=== PATIENT | female | born 1960 | race Caucasian/White ===

== ENCOUNTER 2020-04-24 07:50 | Outpatient (REF) | payer OTHER, SELFPAY ==
--- NOTE | 2020-04-24 07:55 | MM_ITS ---
EXAMINATION: MM SCREENING DIGITAL BREAST TOMOSYNTHESIS, BILATERAL CLINICAL INFORMATION: Screening. Asymptomatic. The lifetime risk of breast cancer based on the Tyrer-Cuzick Model is 12.2%. COMPARISON: Mammography: December 18, 2018 and studies dating back to June 02, 2011 TECHNIQUE: Digital breast tomosynthesis is performed in both the craniocaudal and mediolateral oblique views along with computer-aided detection (CAD). Synthesized 2D images are generated from the tomosynthesis. FINDINGS: The breasts are almost entirely fatty (ACR BI-RADS breast composition Category a). There are no significant masses, abnormal calcifications, or other abnormalities. MM/MM tomosynthesis screening BI IMPRESSION: There are no significant changes from prior study. ASSESSMENT: BI-RADS 1: Negative RECOMMENDATION: Routine annual mammography screening. This patient's information was entered into a reminder system with a target due date for their next mammogram.
== END 2020-04-24 07:51 | disposition home or self-care (01) ==
LOC: HO.MAMMO 07:50
PROVIDERS: PCP Internal Medicine; Visit Provider Obstetrics & Gynecology
DX: Z12.31 Encounter for screening mammogram for malignant neoplasm of breast (principal)
CPT/HCPCS: 77063; 77067

== ENCOUNTER 2020-11-12 12:47 | Outpatient (REF) | payer OTHER, SELFPAY ==
[2020-11-14 20:22] LABS: HPV mRNA E6/E7 rflx Not Detected (Not Detected)
== END 2020-11-12 12:48 | disposition home or self-care (01) ==
LOC: HO.LAB 12:47
PROVIDERS: PCP Internal Medicine; Referring Provider Internal Medicine; Visit Provider Obstetrics & Gynecology
DX: Z01.419 Encounter for gynecological examination (general) (routine) without abnormal findings (principal); Z11.51 Encounter for screening for human papillomavirus (HPV)
CPT/HCPCS: 87624; 88142

== ENCOUNTER 2021-05-12 07:14 | Outpatient (REF) | payer OTHER, SELFPAY ==
--- NOTE | ~2021-05-12 | MM_ITS ---
EXAMINATION: MM SCREENING DIGITAL BREAST TOMOSYNTHESIS, BILATERAL CLINICAL INFORMATION: Screening. Asymptomatic. The lifetime risk of breast cancer based on the Tyrer-Cuzick Model is 11%. COMPARISON: Mammography: 04/24/2020, 12/18/2018, 11/04/2017 TECHNIQUE: Digital breast tomosynthesis is performed in both the craniocaudal and mediolateral oblique views along with computer-aided detection (CAD). Synthesized 2D images are generated from the tomosynthesis. FINDINGS: There are scattered areas of fibroglandular density (ACR BI-RADS breast composition Category b). Breast tissue composition borders on predominantly fatty. Background stromal and fibroglandular densities are stable. No developing density or interval mass or architectural abnormality. No abnormal calcifications. The axilla and skin contours are unremarkable. MM/MM tomosynthesis screening BI IMPRESSION: No mammographic evidence of malignancy. ASSESSMENT: BI-RADS 1: Negative RECOMMENDATION: Routine annual mammography screening. This patient's information was entered into a reminder system with a target due date for their next mammogram.
== END 2021-05-12 07:15 | disposition home or self-care (01) ==
LOC: HO.MAMMO 07:14
PROVIDERS: PCP Obstetrics & Gynecology; Visit Provider Internal Medicine
DX: Z12.31 Encounter for screening mammogram for malignant neoplasm of breast (principal)
CPT/HCPCS: 77063; 77067

== ENCOUNTER 2022-05-19 07:26 | Outpatient (REF) | payer OTHER, SELFPAY ==
--- NOTE | ~2022-05-19 | MM_ITS ---
EXAMINATION: MM SCREENING DIGITAL BREAST TOMOSYNTHESIS, BILATERAL CLINICAL INFORMATION: Screening. Asymptomatic. The lifetime risk of breast cancer based on the Tyrer-Cuzick Model is 12.0%. COMPARISON: Mammography: May 12, 2021 and studies dating back to September 12, 2015 TECHNIQUE: Digital breast tomosynthesis is performed in both the craniocaudal and mediolateral oblique views along with computer-aided detection (CAD). Synthesized 2D images are generated from the tomosynthesis. FINDINGS: The breasts are almost entirely fatty (ACR BI-RADS breast composition Category a). There are no significant masses, abnormal calcifications, or other abnormalities. MM/MM tomosynthesis screening BI IMPRESSION: No significant changes ASSESSMENT: BI-RADS 1: Negative RECOMMENDATION: Routine annual mammography screening. This patient's information was entered into a reminder system with a target due date for their next mammogram.
== END 2022-05-19 07:27 | disposition home or self-care (01) ==
LOC: HO.MAMMO 07:26
PROVIDERS: PCP Internal Medicine; Visit Provider Obstetrics & Gynecology
DX: Z12.31 Encounter for screening mammogram for malignant neoplasm of breast (principal)
CPT/HCPCS: 77063; 77067

== ENCOUNTER → 2022-11-18 13:46 | Outpatient (BNVA) | payer OTHER, SELFPAY | PROVIDERS: PCP Internal Medicine; Visit Provider Obstetrics & Gynecology ==

== ENCOUNTER 2022-12-28 12:12 | Outpatient (AMB) | payer OTHER, SELFPAY ==
--- NOTE | 2022-12-28 12:21 | MHC.OFFVIS ---
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 No complaints. Last Pap/HPV was negative in 11/10 Last Mammogram was BI-RADS 1 in 05/13 Last Colonoscopy was in 11/04, the recommendation was to repeat in 5 years [facility] Medical History (Updated 12/28/22 @ 12:27 by Austin Jiménez MD) Hx LEEP (loop electrosurgical excision procedure), cervix, Skin cancer Surgical History History of dental surgery Family History Maternal Grandmother Breast CA Social History Household Members Other:: partner Housing: House Alcohol intake: current Alcohol intake frequency: holidays/special occasions only Patient Tobacco Use Status: Former Tobacco user Years Smoked: 10 Current occupational status: employed 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 [place] Sexual 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/Heterosexual Gender identity: Female Female Reproductive History Menstrual Age of Menarche: 12 Number of Living Children: 0 Date of last pap smear: 11/12/20 Date of Mammogram: 05/19/22 Review of Systems Const All systems reviewed & are unremarkable except as noted in HPI and below Card Reports as per HPI Resp Reports as per HPI GI Reports as per HPI and Reports no additional complaints Reports as per HPI Physical Exam Vital Signs: BMI result Body Mass Index 27.1 Const General: cooperative, healthy appearing and comfortable Chest Chest palpation & inspection: normal inspection of the chest and normal palpation of entire chest wall Breast/axilla inspection: normal inspection of the breasts and normal inspection of the axillae Breast/axilla palpation: normal palpation of the breasts, normal palpation of the axillae and no axillary lymphadenopathy Resp Effort & Inspection: normal respiratory effort Auscultation: clear to auscultation bilaterally Percussion: percussion normal Cardio Palpation: normal PMI Rate: regular rate Rhythm: regular rhythm Heart sounds: no murmurs and no rubs Peripheral pulses: Peripheral pulses 2+ throughout GI Inspection: Yes normal to inspection Palpation (GI): Soft to palpation, nontender, no guarding, not rigid and No hepatosplenomegaly present Percussion: Yes normal to percussion Auscultation: normal bowel sounds Rectal Exam - Female: deferred General: Yes bladder normal to palpation External Female Exam: No lesion Speculum Exam - Vagina: normal appearance of the vagina, normal palpation, normal vaginal discharge and not erythematous Speculum Exam - Cervix: normal appearance of the cervix and normal palpation Bimanual exam- vagina & uterus: normal bimanual exam, normal palpation, uterine size normal, bladder normal to palpation, consistency normal and normal palpation Bimanual Exam- Adnexa, other: normal adnexae, no masses and no tenderness Assessment & Plan Assessment & Plan (1) Well woman exam: Code(s): Z01.419 - Encounter for gynecological examination (general) (routine) without abnormal findings Plan: Co testing not indicated this year. Counseled the patient about the recommended dietary allowance of 1200 mg of Calcium & 600 IU of vitamin D. Instructions given the patient to schedule her next screening Mammogram in 05/14, the patient was referred to GI for screening colonoscopy . The patient was instructed to perform monthly self-breast exams and schedule annual exam in a year; all questions answered and the patient verbalized understanding. Orders: Orders MM screening mammo BI 4 Months Z12.31 - Encounter for screening mammogram for malignant neoplasm of breast Referrals Gastroenterology Referral Z12.11 - Encounter for screening for malignant neoplasm of colon Coding Level of Care Code Est Pt Prev Care 40-64y(48295) Diagnoses Well woman exam Z01.419
[2022-12-28 12:22] VITALS: BP 110/60; BMI 27.1
== END 2022-12-28 12:54 | disposition home or self-care (01) ==
LOC: HO.HWS 12:12
PROVIDERS: PCP Internal Medicine; Visit Provider Obstetrics & Gynecology
DX: Z01.419 Encounter for gynecological examination (general) (routine) without abnormal findings (principal)
CPT/HCPCS: 99396

== ENCOUNTER → 2022-12-28 12:12 | Outpatient (BNVA) | payer OTHER, SELFPAY | PROVIDERS: PCP Internal Medicine; Visit Provider Obstetrics & Gynecology ==

== ENCOUNTER 2023-02-24 06:19 | Outpatient (REF) | payer OTHER, SELFPAY ==
[2023-02-24 06:35] LABS: MANUAL DIFF FLAG NO
[2023-02-24 07:15] LABS: Basophils Percent Auto 0.8 % (0-2); Eosinophils Absolute Auto 0.3 X10*3/uL (0.0-0.4); Hematocrit 40.7 % (37.0-47.0); Hemoglobin 14.2 g/dl (12.0-16.0); Imm Gran Abs Auto 0.01 X10*3/uL (0.00-0.03); Imm Gran Pct Auto 0.2 % (0.0-0.4); Lymphocytes Absolute Auto 1.9 X10*3/uL (1.2-4.9); Lymphocytes Percent Auto 39.9 % (20-40); Mean Corpuscular HGB Conc 34.9 g/dl (31.0-35.0); Mean Corpuscular Hemoglobin 30.8 pg (27.0-33.0); Mean Corpuscular Volume 88.3 fL (80.0-98.0); Mean Platelet Volume 10.5 fL (9.4-12.3); Monocytes Absolute Auto 0.4 X10*3/uL (0.1-1.2); Monocytes Percent Auto 8.7 % (2-11); Neutrophils Absolute Auto 2.2 x10*3/uL (2.0-8.3); Neutrophils Percent Auto 44.4 % (45-73); Platelet Count 200 X10*3/uL (160-400); Red Blood Count 4.61 X10*6/uL (4.20-5.50); Red Cell Distribution Width 12.3 % (11.0-16.0); White Blood Count 4.8 X10*3/uL (4.8-10.8)
[2023-02-24 07:41] LABS: Alanine Aminotransferase 19 U/L (0-31); Albumin Level 4.4 g/dL (3.5-5.0); Alkaline Phosphatase 42 U/L (39-117); Anion Gap 15 (12-20); Aspartate Amino Transferase 23 U/L (5-31); Bilirubin Total 0.5 mg/dL (0.0-1.0); Blood Urea Nitrogen 8 mg/dL (9-16); Calcium 9.4 mg/dL (8.4-10.2); Carbon Dioxide 25 mmol/L (22-29); Chloride 105 mmol/L (96-108); Cholesterol 221 mg/dL (<200); Estimated Glomerular Filt Rate > 60; Glucose Fasting 105 mg/dL (60-99); HDL Cholesterol 78 mg/dL (>40); LDL Cholesterol Calculated 130 mg/dL (<100); Potassium 4.1 mmol/L (3.3-5.1); Sodium 141 mmol/L (135-145); Total Protein 7.1 g/dL (6.5-8.0); Triglycerides 69 mg/dL (<150)
[2023-02-24 07:56] LABS: Vitamin D 25-OH Total 32.5 ng/mL (>30)
== END 2023-02-24 06:20 | disposition home or self-care (01) ==
LOC: HO.LAB 06:19
PROVIDERS: PCP Internal Medicine; Visit Provider Internal Medicine
DX: Z01.818 Encounter for other preprocedural examination (principal); K21.9 Gastro-esophageal reflux disease without esophagitis; K80.20 Calculus of gallbladder without cholecystitis without obstruction; M25.551 Pain in right hip; Z79.899 Other long term (current) drug therapy
CPT/HCPCS: 36415; 80053; 80061; 82306; 85025

== ENCOUNTER 2023-02-24 07:10 | Outpatient (AMB) | payer OTHER, SELFPAY ==
--- NOTE | 2023-02-24 07:34 | MHC.OFFVIS ---
Intake Vital Signs 02/24/23 07:38 Height 5 ft 5 in Weight 160 lb BMI 26.6 BP 131/70 Blood Pressure Location Lt brachial Position Sitting Pulse 61 Intake Visit Reasons: Screening Colonoscopy Intake Note: Patient new consult for 2nd pre colonoscopy screening. Patient denies any GI issues. Hand Zipper Trimmer Required: No Accompanied by: Self / Same As Patient Allergies bee pollen [BEE STINGS] Allergy (Severe, Verified 02/24/23 07:33) ANAPHYLAXIS ENVIROMENTAL Allergy (Intermediate, Uncoded 12/28/22 12:23) HAYFEVER Medication List - Last Reconciled 02/24/23 by Jacki Whipple PA-C cetirizine (Zyrtec) 10 mg PO DAILY PRN omeprazole 20 mg PO DAILY trazodone 50 mg PO QPM HPI HPI Comments History of Present Illness Details A 62 y/o female with persistent acid reflux- due for screening colonoscopy ppi for about 8 years- dietary modifications- nothing specific- ID Normal Bowels No fam hx GI cancers No respiratory or cardiac issues No N/V/ D/ abdominal pain. 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 [place] Sexual 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/Heterosexual Gender identity: Female Female Reproductive History Menstrual Age of Menarche: 12 Review of Systems Const All systems reviewed & are unremarkable except as noted in HPI and below Card Reports chest pain and Denies dyspnea Resp Denies dyspnea GI Denies abdominal pain, Denies hematochezia, Reports heartburn, Denies nausea and Denies vomiting Physical Exam Vital Signs: Last Vital Signs Pulse 61 02/24/23 07:38 BP 131/70 02/24/23 07:38 BMI result Body Mass Index 26.6 Const General: cooperative, healthy appearing, comfortable and no acute distress Orientation/consciousness: patient oriented x3 Limitations: no limitations Eyes Conjunctivae: conjunctivae normal Resp Effort & Inspection: normal respiratory effort and able to speak in complete sentences Auscultation: clear to auscultation bilaterally, no rales, no rhonchi and no wheezes Cardio Rate: regular rate Rhythm: regular rhythm Heart sounds: S1 normal heart sound present and S2 normal heart sound present Skin General skin exam: no rashes or lesions noted Neuro General: patient oriented x3 Extrem General: Yes full ROM Psych Appearance: grossly normal and well kempt Mental Status: mental status grossly normal Speech and movement: Normal speech and movement present and Clear speech present Affect: normal affect Attitude: cooperative Thought process: Normal thought process present Thought content: Normal thought content present Insight: Good insight present (Psych) Judgement: Good judgement present (Psych) Assessment & Plan Assessment & Plan (1) Acid reflux: Code(s): K21.9 - Gastro-esophageal reflux disease without esophagitis Plan: EGD- Barretts surveillance- r/o PUD, non ulcer dyspepsia- esophagitis - other endoscopic findings (2) Encounter for screening colonoscopy: Code(s): Z12.11 - Encounter for screening for malignant neoplasm of colon Plan: screening colonoscopy MG split Plan EGD/ colonoscopy=MG split prep Orders: Orders EGD/[place] Combo - GI Use Only Today K21.9 - Gastro-esophageal reflux disease without esophagitis, Z12.11 - Encounter for screening for malignant neoplasm of colon Medications: New polyethylene glycol 3350 (Miralax) Take as directed by mouth the day before your procedure. 238 grams PO ONCE 1 day PRN 238 grams 0RF laxative effect bisacodyl (Dulcolax (bisacodyl)) Day before procedure, prep day Take 4 tablets by mouth upon awakening followed by large glass of water 20 mg (4 x 5 mg) PO ONCE 1 day 4 tabs 0RF colonoscopy prep Z12.11 - Encounter for screening for malignant neoplasm of colon Patient Instructions: EGD/ colonoscopy=MG split prep literature given Reflux precautions avoid culprits continue ppi call with concerns Coding Level of Care Code New Pt Level 3 (25401) Diagnoses Acid reflux K21.9 Encounter for screening colonoscopy Z12.11 Time Spent (min) 30
[2023-02-24 07:38] VITALS: BP 131/70; PULSE 61; BMI 26.6
== END 2023-02-24 08:38 | disposition home or self-care (01) ==
PROVIDERS: PCP Internal Medicine; Visit Provider Physician Assistant
DX: K21.9 Gastro-esophageal reflux disease without esophagitis (principal); Z12.11 Encounter for screening for malignant neoplasm of colon
CPT/HCPCS: 99203

== ENCOUNTER 2023-05-27 07:11 | Outpatient (REF) | payer OTHER, SELFPAY | END 2023-05-27 07:12 | disposition home or self-care (01) | LOC: HO.MAMMO 07:11 | PROVIDERS: PCP Internal Medicine; Visit Provider Internal Medicine | DX: Z12.31 Encounter for screening mammogram for malignant neoplasm of breast (principal) | CPT/HCPCS: 77063; 77067 ==

== ENCOUNTER → 2023-05-27 07:30 | Outpatient (BNV) | payer OTHER, SELFPAY | PROVIDERS: PCP Internal Medicine; Visit Provider Radiology Diagnostic Radiology | DX: Z12.31 Encounter for screening mammogram for malignant neoplasm of breast (principal) | CPT/HCPCS: 77063; 77067 ==

== ENCOUNTER 2023-08-02 07:51 | Day surgery (SDC) | payer OTHER, SELFPAY ==
--- NOTE | 2023-07-29 12:16 | P.CONAN_ITS ---
Documented by User: Lacie Crisostomo NP 07/29/23 12:17 HPI - Anesthesia Eval Consult details Narrative: 62yo F for Upper Endoscopy and Colonoscopy PMFSH Active Problems Active Problems: All Active Problems (Updated 02/24/23 @ 07:58 by Jacki Whipple PA-C) Encounter for screening colonoscopy (Acute) Acid reflux (Acute) Well woman exam (Acute) Past Medical History Medical History Hx LEEP (loop electrosurgical excision procedure), cervix, Skin cancer Family History Family History Maternal Grandmother Breast CA Surgical History Surgical History Hx of colonoscopy History of dental surgery Social History Social History Household Members Other:: partner Housing: House Alcohol intake: current Alcohol intake frequency: holidays/special occasions only Patient Tobacco Use Status: Former Tobacco user Years Smoked: 10 Use of substances other than those prescribed or required for medical reasons: Yes Are you DNR?: No Advance Directives: No Advance Directives Information Provided: Yes Current occupational status: employed 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[place] Sexual 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/Heterosexual Gender identity: Female Meds Allergies Allergy/AdvReac Type Severity Reaction Status Date / Time bee pollen [BEE STINGS] Allergy Severe ANAPHYLAXIS Verified 02/24/23 07:33 ENVIROMENTAL Allergy Intermediate HAYFEVER Uncoded 12/28/22 12:23 Home Medications Medication Instructions Recorded Confirmed Last Taken Type cetirizine 10 mg tablet (Zyrtec) 10 mg PO DAILY PRN Seasonal 11/12/20 08/02/23 Unknown History allergies omeprazole 20 mg capsule,delayed 20 mg PO DAILY 11/16/21 08/02/23 Unknown History release trazodone 50 mg tablet 50 mg PO QPM 11/16/21 08/02/23 Unknown History Exam Pertinent Lab Results Pertinent Lab Results: Laboratory Tests 02/24/23 06:33 WBC 4.8 Hgb 14.2 Hct 40.7 Plt Count 200 Sodium 141 Potassium 4.1 Chloride 105 Carbon Dioxide 25 BUN 8 L Creatinine 0.74 Assessment and Plan Assessment Anesthesia Assessment: Chart Reviewed Documented by User: Lakeisha Huang MD 08/02/23 08:39 PMFSH Past Medical History Medical History Hx LEEP (loop electrosurgical excision procedure), cervix, Skin cancer Family History Family History Maternal Grandmother Breast CA Family history of problems with anesthesia: No Surgical History Surgical History Hx of colonoscopy History of dental surgery History of Problems with Anesthesia: No Social History Social History Household Members Other:: partner Housing: House Alcohol intake: current Alcohol intake frequency: holidays/special occasions only Patient Tobacco Use Status: Former Tobacco user Years Smoked: 10 Use of substances other than those prescribed or required for medical reasons: Yes Are you DNR?: No Advance Directives: No Advance Directives Information Provided: Yes Current occupational status: employed 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[place] Sexual 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/Heterosexual Gender identity: Female Meds Allergies Allergy/AdvReac Type Severity Reaction Status Date / Time bee pollen [BEE STINGS] Allergy Severe ANAPHYLAXIS Verified 02/24/23 07:33 ENVIROMENTAL Allergy Intermediate HAYFEVER Uncoded 12/28/22 12:23 Home Medications Medication Instructions Recorded Confirmed Last Taken Type cetirizine 10 mg tablet (Zyrtec) 10 mg PO DAILY PRN Seasonal 11/12/20 08/02/23 Unknown History allergies omeprazole 20 mg capsule,delayed 20 mg PO DAILY 11/16/21 08/02/23 Unknown History release trazodone 50 mg tablet 50 mg PO QPM 11/16/21 08/02/23 Unknown History Exam Airway Mallampati Class: II TM Dist: >3cm Neck ROM: Full Heart: rrr Lungs: cta Assessment and Plan Assessment Anesthesia Assessment: Anesthesia Plan Discussed Final Anesthetic Review Family History of Problems with Anesthesia: No History of Problems with Anesthesia: No NPO: Yes ASA Class: II Final Preanesthetic Review: No Changes in Pt Med Stat, Meds/Allgs Chart Reviewed, Consent Obtained/Reviewed and Anes Risks/Benef Reviewed Patient Risk: Low Procedure Risk: Low Anesthetic Plan Anesthetic Plan: MAC: Disposition: Standard PACU
[2023-08-02 08:18] VITALS: BMI 27.5
[2023-08-02 08:38] VITALS: BP 142/83; PULSE 68; RESP 16; TEMP 36.5; O2SAT 99
--- NOTE | 2023-08-02 09:17 | MHC.SHP ---
Pre-Procedural Eval Section A - 24 Hr Update-Section A only Date of Service: 08/02/23 Section B - Complete if H&P > 30 days Chief Complaint: Gastro-esophageal reflux disease without esophagit Details of Present Illness: colo screening Relevant Family History (Specify if Yes): No Relevant Social History: None Present Medications: see Short Stay Collaborative assessment Medical History: Significant History ( Hx LEEP (loop electrosurgical excision procedure), cervix, Skin cancer) History of Previous Operations: Relevant previous surgery/procedure and date(s) (History of dental surgery) Allergies: Allergies Allergy/AdvReac Type Severity Reaction Status Date / Time bee pollen [BEE STINGS] Allergy Severe ANAPHYLAXIS Verified 02/24/23 07:33 ENVIROMENTAL Allergy Intermediate HAYFEVER Uncoded 12/28/22 12:23 Review of Systems Sugical H&P ROS: Negative: Constitution, Cardiovascular, Respiratory, Neurological, Psychiatric, Hem-Onc, Allergic/Immunologic, Gastrointestinal, Genitourinary, Musculoskeletal, Integumentary, Endocrine and Eyes/Ears/Nose/Throat Exam Surgical H&P Exam: Normal: HEENT, Normal: Heart, Normal: Lungs, Normal: Extremities, Normal: Abdomen, Normal: Skin and Normal: Neurological Plan Diagnosis/Plan: Unchanged I have reviewed the history and physical and performed a pertinent physical examination on my patient. No changes have occurred unless specified. Time Spent With Patient Time: Total time managing care of this patient today ____ minutes.
--- NOTE | 2023-08-02 09:20 | P.OP_ITS ---
Operative Note Operative Note Date of Service: 08/02/23 Narrative: Operative Information Procedure Description: EGD, Colonoscopy Indication: GERD, colo screening Anesthesia: MAC FLEXIBLE TRANSORAL UPPER GASTROINTESTINAL ENDOSCOPY AND COLONOSCOPY PROCEDURE NOTE UPPER ENDOSCOPY Consent: Indications for the procedure and potential complications of bleeding, perforation, reaction to medications and missed diagnosis were discussed with the patient and informed consent was obtained. Instrument: Olympus GIF H 190 J mid size upper endoscope Monitoring: Vital signs and clinical assessment, continuous EKG monitoring, Pulse oximetry, Carbon Dioxide monitoring and blood pressure monitoring were done throughout the procedure. Procedure: The patient was placed in the left lateral decubitis position and pre-procedure medications were administered and a bite block was placed. The endoscope was inserted into the mouth and advanced under direct vision to the third part of duodenum. A careful inspection was made as the upper endoscope was withdrawn including a retroflexed examination of the proximal stomach; Findings and interventions are described below. Findings: Larynx:normal Esophagus: GE junction at 36 cm, diaphragm hiatus at 36 cm, mild esophagitis at GEJ, bx taken from here and from distal, proximal esophagus Stomach: Granular mucosa with erythema. Biopsies were obtained. Grade 2 flap valve on retroflexed examination of the cardia. Duodenum: Normal bulb and descending duodenum, Intervention: Biopsies as noted above, COLONOSCOPY Instrument: Olympus variable stiffness pediatric scope 190L Colonoscopy Monitoring: Vital signs and clinical assessment, continuous EKG monitoring, Pulse oximetry, Carbon Dioxide monitoring and blood pressure monitoring were done throughout the procedure. Colon withdrawal time was 13 minutes. Procedure: The patient was placed in the left lateral decubitis position and pre-procedure medications were administered. After a digital rectal examination of the ano-rectum, the video colonoscope was inserted into the rectum and advanced through the colon to the cecum/TI. The colonoscope was slowly withdrawn in a retrograde panoramic fashion and the colon mucosa was carefully examined including a retroflexed view of the rectum. Findings and interventions are described below. Procedure Difficulty:moderate Findings: Terminal Ileum-not intubated due to looping Cecum:normal Ascending Colon: normal Transverse Colon -normal Descending Colon:normal Sigmoid Colon: normal Rectum: Retroflexion with small internal hemorrhoids, grade I, one sessile polyp 7-8 mm removed with cold forceps Anorectum - normal Colon preparation: [place] Bowel Preparation Scale Right colon; 2 Transverse colon: 2 Left colon; 2 (0 = Unprepared colon segment with mucosa not seen due to solid stool that cannot be cleared. 1 = Portion of mucosa of the colon segment seen, but other areas of the colon segment not well seen due to staining, residual stool and/or opaque liquid. 2 = Minor amount of residual staining, small fragments of stool and/or opaque liquid, but mucosa of colon segment seen well. 3 = Entire mucosa of colon segment seen well with no residual staining, small fragments of stool or opaque liquid) Impression and Post Procedure Diagnosis: Endoscopy Findings: gastritis mild esophagitis Colonoscopy Findings: rectal polyp Plan: Await Pathology results Repeat Colonoscopy in 5-7 years if adenoma, 10 yrs if hyperplastic or earlier if clinically indicated High fiber diet leaflet avoid straining at stool, epsom salts and sitz bath, anusol supps or cream discussed timing of PPI, was taking incorrectly, reviewed taking in morning on empty stomach then eating after 15 mins Above findings were reviewed with the patient and relevant handouts were provided if indicated.
[2023-08-02 10:09] VITALS: BP 115/80; PULSE 82; RESP 18; TEMP 36.1; O2SAT 96
[2023-08-02 10:24] VITALS: BP 126/78; PULSE 78; RESP 20; TEMP 36.6; O2SAT 96
== END 2023-08-02 10:42 | disposition home or self-care (01) ==
PROVIDERS: PCP Internal Medicine; Visit Provider Internal Medicine Gastroenterology
PROC: (CPT 43239; principal; 2023-08-02 09:20)
DX: K29.70 Gastritis, unspecified, without bleeding (principal); K20.80 Other esophagitis without bleeding; K21.9 Gastro-esophageal reflux disease without esophagitis; Z12.11 Encounter for screening for malignant neoplasm of colon; K62.1 Rectal polyp; K64.0 First degree hemorrhoids; Z79.899 Other long term (current) drug therapy; Z87.891 Personal history of nicotine dependence
CPT/HCPCS: 43239; 45380; 88305; 88313; 88342; J1100; J1596; J2704

== ENCOUNTER → 2023-08-02 07:51 | Outpatient (BNV) | payer OTHER, SELFPAY | PROVIDERS: PCP Internal Medicine; Visit Provider Internal Medicine Gastroenterology | DX: Z12.11 Encounter for screening for malignant neoplasm of colon (principal); K62.1 Rectal polyp; K64.0 First degree hemorrhoids; K21.00 Gastro-esophageal reflux disease with esophagitis, without bleeding; K29.70 Gastritis, unspecified, without bleeding | CPT/HCPCS: 43239; 45380 ==

== ENCOUNTER 2023-08-16 07:23 | Outpatient (AMB) | payer OTHER, SELFPAY ==
--- NOTE | 2023-08-16 07:26 | MHC.OFFVIS ---
Intake Vital Signs 08/16/23 07:27 Height 5 ft 5 in Weight 167 lb 8.821 oz BMI 27.9 BP 123/72 Blood Pressure Location Lt brachial Position Sitting Pulse 68 Intake Visit Reasons: s/p egd/colon Intake Note: Selena presents in the office as a follow up EGD and COLO. CC: She states that she has not had a BM since her procedures. Her stomach has been upset. Managed Care Nurse Required: No Allergies bee pollen [BEE STINGS] Allergy (Severe, Verified 08/16/23 07:27) ANAPHYLAXIS ENVIROMENTAL Allergy (Intermediate, Uncoded 08/16/23 07:27) HAYFEVER HPI HPI Comments History of Present Illness Details A 62 y/o female f/u 2 weeks after EGD/ colonoscopy- she has not had a solid BM- stool been runny- epigastric pain and bloating-not sure if she is constipated Appetite is good- She says sx could be stress her has a neobladder after bladder cancer- now has undergo chemo for cancer- colon cancer -is not as well as she had expected. This has caused her a lot of stress certainly understandable She is very tearful-worried No rectal bleeding, nausea, vomiting, fever or chills PFSH Medical History (Updated 08/16/23 @ 11:25 by Jacki Whipple PA-C) Hx LEEP (loop electrosurgical excision procedure), cervix, Skin cancer Surgical History History of esophagogastroduodenoscopy (EGD) Hx of colonoscopy History of dental surgery Family History Maternal Grandmother Breast CA Social History Household Members Other:: partner Housing: House Alcohol intake: current Alcohol intake frequency: holidays/special occasions only Patient Tobacco Use Status: Former Tobacco user Years Smoked: 10 Current occupational status: employed 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[place] Sexual 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/Heterosexual Gender identity: Female Female Reproductive History Menstrual Age of Menarche: 12 Review of Systems Const All systems reviewed & are unremarkable except as noted in HPI and below Card Denies chest pain and Denies dyspnea Resp Denies dyspnea GI Reports change in bowel habits and Reports heartburn Physical Exam Vital Signs: Last Vital Signs Pulse 68 08/16/23 07:27 BP 123/72 08/16/23 07:27 BMI result Body Mass Index 27.9 Const General: cooperative, healthy appearing, comfortable and anxious Orientation/consciousness: patient oriented x3 Limitations: no limitations Cardio Rate: regular rate Rhythm: regular rhythm Heart sounds: S1 normal heart sound present and S2 normal heart sound present GI Palpation (GI): Soft to palpation and nontender Auscultation: normal bowel sounds Skin General skin exam: no rashes or lesions noted Neuro General: patient oriented x3 Extrem General: Yes full ROM Psych Appearance: grossly normal Mental Status: mental status grossly normal Speech and movement: Clear speech present Affect: Sad affect present Attitude: cooperative Thought process: Normal thought process present Thought content: Normal thought content present Results Reviewed Results Reviewed: Name: Selena Womack Age/Sex: 62/F Attending: Felix Burton MD : 1960 Submitted by: Felix Burton MD Copies to: Luis M Blackwood MD MR #: [id number] Status: [facility] Collected: 08/02/23 Location: [facility] Received: 08/02/23 Diagnosis A. Stomach, biopsy: Antral-type and oxyntic mucosa with mild chronic inactive inflammation; no Helicobacter organisms seen. B. GE junction, biopsy: - Cardiofundic-type mucosa with moderate chronic, focally active, inflammation; no intestinal metaplasia seen. - Squamous mucosa within normal limits. C. Esophagus, distal, biopsy: Squamous epithelium within normal limits; no inflammation seen. D. Esophagus, proximal, biopsy: Active esophagitis (maximum eosinophil count 1 per high powered field). E. Rectum, polypectomy: Hyperplastic mucosal polyp. Clinical History Pre-Op Dx: GERD, colon screening Post-Op Dx: Gastritis Microscopic Description A-E. Microscopic sections examined. No metaplastic changes are seen, supported by AB/PAS stains (A and B); no Helicobacter organisms are seen, supported by H. pylori immunostain (A). Material Received A. Stomach bx's B. GE junction bx's C. Distal esophagus D. Proximal esophagus E. Rectal polyp Gross Description Received in 5 parts. Part A: Received in formalin labeled ?stomach bx's? are 3 pan irregular and rectangular tissue fragments ranging from 0.2-0.7 cm, submitted in toto in a cassette labeled A. Part B: Received in formalin labeled ?GE junction? are 4 pan-pink irregular and rectangular tissue Patient: Selena Womack Age/Sex: 62/F MR#: [id number] Page 1 of 2 mpression and Post Procedure Diagnosis: Endoscopy Findings: gastritis mild esophagitis Colonoscopy Findings: rectal polyp Plan: Await Pathology results Repeat Colonoscopy in 5-7 years if adenoma, 10 yrs if hyperplastic or earlier if clinically indicated High fiber diet leaflet avoid straining at stool, epsom salts and sitz bath, anusol supps or cream discussed timing of PPI, was taking incorrectly, reviewed taking in morning on empty stomach then eating after 15 mins Above findings were reviewed with the patient and relevant handouts were provided if indicated. Assessment & Plan Assessment & Plan (1) Constipation: Code(s): K59.00 - Constipation, unspecified Plan: KUB- HFD (2) Esophagitis: Comment: Omeprazole 20 mg with breakthrough, reviewed EGD, pathology will give trial to pantoprazole 40 mg Code(s): K20.90 - Esophagitis, unspecified without bleeding Plan: pantoprazole 40 mg (3) Stress due to illness of family member: Comment: Very pleasant 62-year-old female - with 2nd cancer diagnoses, -undergoing chemotherapy-has been very difficult to her she has no children Code(s): Z63.79 - Other stressful life events affecting family and household Plan: Emotional support-30 minute discussion regarding illness, stress ETC- Very receptive to support Plan KUB pantoprazole 40 mg- Orders: Orders XR KUB Today K20.90 - Esophagitis, unspecified without bleeding, K59.00 - Constipation, unspecified Medications: New pantoprazole 40 mg PO DAILY 30 days 30 tabs 11RF Patient Instructions: KUB High-fiber diet pantoprazole 40 mg- Reviewed reflux precautions Encouraged her to call with any questions or concerns, if we can be of any assistance in any way Coding Level of Care Code Est Pt Level 4 (54237) Diagnoses Constipation K59.00 Esophagitis K20.90 Stress due to illness of family member Z63.79 Time Spent (min) 45
[2023-08-16 07:27] VITALS: BP 123/72; PULSE 68; BMI 27.9
== END 2023-08-16 09:57 | disposition home or self-care (01) ==
PROVIDERS: PCP Internal Medicine; Visit Provider Physician Assistant
DX: K59.00 Constipation, unspecified (principal); K20.90 Esophagitis, unspecified without bleeding; Z63.79 Other stressful life events affecting family and household
CPT/HCPCS: 99214

== ENCOUNTER 2023-08-16 07:23 | Outpatient (REF) | payer OTHER, SELFPAY ==
--- NOTE | ~2023-08-16 | XR_ITS ---
EXAMINATION: XR ABDOMEN KUB CLINICAL INDICATION: Constipation. COMPARISON: None available. TECHNIQUE: 2 AP views of the abdomen and pelvis are submitted. FINDINGS: The bowel gas pattern is normal with no evidence of ileus or obstruction. There is a mild to moderate stool burden. No free intraperitoneal air is seen. No unusual soft tissue calcifications are noted. No acute osseous abnormality is seen. There are very mild degenerative changes of the hips. XR/XR KUB IMPRESSION: There is mild to moderate stool burden. No obstruction, ileus or free intraperitoneal air is seen.
== END 2023-08-16 07:24 | disposition home or self-care (01) ==
LOC: HO.XRAY 07:23
PROVIDERS: PCP Internal Medicine; Visit Provider Physician Assistant
DX: K59.00 Constipation, unspecified (principal); K20.90 Esophagitis, unspecified without bleeding; Z63.79 Other stressful life events affecting family and household
CPT/HCPCS: 74018; 99212

== ENCOUNTER 2024-03-08 09:04 | Outpatient (AMB) | payer OTHER, SELFPAY ==
[2024-03-08 09:32] VITALS: BP 120/76; BMI 26.8
--- NOTE | 2024-03-08 09:32 | A.OFFVIS_ITS ---
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 No complaints. Last Pap/HPV was negative in 11/10 Last Mammogram was BI-RADS 1 in 06/15 Last Colonoscopy was in 08/13, the recommendation was to repeat in 10 years No previous DEXA scan, the patient gives a history of osteoporosis recently diagnosed with her 2 sisters [facility] Medical History Hx LEEP (loop electrosurgical excision procedure), cervix, Skin cancer Surgical History History of esophagogastroduodenoscopy (EGD) Hx of colonoscopy History of dental surgery Family History Maternal Grandmother Breast CA Social History Household Members Other:: partner Housing: House Alcohol intake: current Alcohol intake frequency: holidays/special occasions only Patient Tobacco Use Status: Former Tobacco user Years Smoked: 10 Current occupational status: employed 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 [employer] Sexual 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/Heterosexual Gender identity: Female Female Reproductive History Menstrual Age of Menarche: 12 Date of last pap smear: 11/13/20 Date of Mammogram: 05/27/23 Review of Systems Const All systems reviewed & are unremarkable except as noted in HPI and below Card Reports as per HPI Resp Reports as per HPI GI Reports as per HPI and Reports no additional complaints Reports as per HPI Physical Exam Vital Signs: Last Vital Signs BP 120/76 03/08/24 09:32 BMI result Body Mass Index 26.8 Const General: cooperative, healthy appearing and comfortable Chest Chest palpation & inspection: normal inspection of the chest and normal palpation of entire chest wall Breast/axilla inspection: normal inspection of the breasts and normal inspection of the axillae Breast/axilla palpation: normal palpation of the breasts, normal palpation of the axillae and no axillary lymphadenopathy Resp Effort & Inspection: normal respiratory effort Auscultation: clear to auscultation bilaterally Percussion: percussion normal Cardio Palpation: normal PMI Rate: regular rate Rhythm: regular rhythm Heart sounds: no murmurs and no rubs Peripheral pulses: Peripheral pulses 2+ throughout GI Inspection: Yes normal to inspection Palpation (GI): Soft to palpation, nontender, no guarding, not rigid and No hepatosplenomegaly present Percussion: Yes normal to percussion Auscultation: normal bowel sounds Rectal Exam - Female: deferred General: Yes bladder normal to palpation External Female Exam: No lesion Speculum Exam - Vagina: normal appearance of the vagina, normal palpation, normal vaginal discharge and not erythematous Speculum Exam - Cervix: normal appearance of the cervix and normal palpation Bimanual exam- vagina & uterus: normal bimanual exam, normal palpation, uterine size normal, bladder normal to palpation, consistency normal and normal palp ation Bimanual Exam- Adnexa, other: normal adnexae, no masses and no tenderness Assessment & Plan Assessment & Plan (1) Well woman exam: Comment: History of ELANA 2 in 0 7 status post LEEP Code(s): Z01.419 - Encounter for gynecological examination (general) (routine) without abnormal findings Category: Medical Plan: Co testing done. Counseled the patient about the recommended dietary allowance of 1200 mg of Calcium & 600 IU of vitamin D. Instructions given the patient to schedule next screening Mammogram in 06/16. DEXA scan ordered, instructions given the patient to schedule DEXA scan and a follow-up appointment within 2 weeks. The patient was instructed to perform monthly self-breast exams and schedule annual exam in a year. All questions answered and the patient verbalized understanding. Orders: Orders XR DEXA axial skeleton Today Z78.0 - Asymptomatic menopausal state Coding Level of Care Code Est Pt Prev Care 40-64y(13799) Diagnoses Well woman exam Z01.419
== END 2024-03-08 09:51 | disposition home or self-care (01) ==
PROVIDERS: PCP Internal Medicine; Visit Provider Obstetrics & Gynecology
DX: Z01.419 Encounter for gynecological examination (general) (routine) without abnormal findings (principal)
CPT/HCPCS: 99396

== ENCOUNTER 2024-04-02 12:01 | Outpatient (REF) | payer OTHER, SELFPAY ==
[2024-04-02 13:07] LABS: MANUAL DIFF FLAG NO
[2024-04-02 13:29] LABS: Basophils Percent Auto 0.6 % (0-2); Eosinophils Absolute Auto 0.2 X10*3/uL (0.0-0.4); Eosinophils Percent Auto 4.2 % (0-4); Hematocrit 39.3 % (37.0-47.0); Hemoglobin 13.7 g/dl (12.0-16.0); Imm Gran Abs Auto 0.01 X10*3/uL (0.00-0.03); Imm Gran Pct Auto 0.2 % (0.0-0.4); Lymphocytes Absolute Auto 1.7 X10*3/uL (1.2-4.9); Lymphocytes Percent Auto 33.8 % (20-40); Mean Corpuscular HGB Conc 34.9 g/dl (31.0-35.0); Mean Corpuscular Hemoglobin 30.4 pg (27.0-33.0); Mean Corpuscular Volume 87.3 fL (80.0-98.0); Monocytes Absolute Auto 0.4 X10*3/uL (0.1-1.2); Monocytes Percent Auto 7.6 % (2-11); Neutrophils Absolute Auto 2.7 x10*3/uL (2.0-8.3); Neutrophils Percent Auto 53.6 % (45-73); Platelet Count 198 X10*3/uL (160-400); Red Cell Distribution Width 12.4 % (11.0-16.0)
[2024-04-02 14:00] LABS: Alanine Aminotransferase 17 U/L (0-31); Albumin Level 4.4 g/dL (3.5-5.0); Alkaline Phosphatase 42 U/L (39-117); Anion Gap 11 (12-20); Aspartate Amino Transferase 21 U/L (5-31); Bilirubin Total 0.4 mg/dL (0.0-1.0); Blood Urea Nitrogen 9 mg/dL (9-16); Calcium 9.1 mg/dL (8.4-10.2); Carbon Dioxide 27 mmol/L (22-29); Chloride 103 mmol/L (96-108); Cholesterol 215 mg/dL (<200); Estimated Glomerular Filt Rate > 60; Glucose Random 101 mg/dL (60-115); Potassium 4.2 mmol/L (3.3-5.1); Sodium 137 mmol/L (135-145); Total Protein 7.2 g/dL (6.5-8.0)
== END 2024-04-02 12:02 | disposition home or self-care (01) ==
LOC: HO.10HDL 12:01
PROVIDERS: Visit Provider Internal Medicine
DX: I10 Essential (primary) hypertension (principal); K21.9 Gastro-esophageal reflux disease without esophagitis; M16.0 Bilateral primary osteoarthritis of hip
CPT/HCPCS: 36415; 80053; 82306; 82465; 85025

== ENCOUNTER 2024-06-01 07:18 | Outpatient (REF) | payer OTHER, SELFPAY ==
--- NOTE | ~2024-06-01 | MM_ITS ---
EXAMINATION: MM SCREENING DIGITAL BREAST TOMOSYNTHESIS, BILATERAL CLINICAL INFORMATION: Screening. Asymptomatic. COMPARISON: Mammography: Comparison is made with available priors TECHNIQUE: Digital breast mammography with tomosynthesis is performed in both the craniocaudal and mediolateral oblique views along with computer-aided detection (CAD). FINDINGS: There are scattered areas of fibroglandular density (ACR BI-RADS breast composition Category b). There are no significant masses, abnormal calcifications, or other abnormalities. MM/MM tomosynthesis screening BI IMPRESSION: No mammographic evidence of malignancy. ASSESSMENT: BI-RADS BI-RADS 1 - Negative RECOMMENDATION: Routine annual mammography screening. 1 year F/U This examination should not preclude the clinical evaluation of a suspicious palpable abnormality. This patient's information was entered into a reminder system with a target due date for their next mammogram. Electronically signed by: Sakina Moore DO 06/08/2024 09:36 AM SARAH
--- NOTE | ~2024-06-01 | MM_ITS ---
EXAMINATION: Dual-Energy X-ray Absorptiometry - Bone Density Study HISTORY: Estrogen deficiency TECHNIQUE: Comr.se Dual energy absorptiometry (DEXA) of the lumbar spine, total left hip, and femoral neck was performed. COMPARISON: There are no prior studies for comparison. FINDINGS: The bone mineral density of the lumbar spine is 1.000 with a T-score of -1.5, and a Z-score of -0.2. The bone mineral density of the left total hip is 0.926 with a T-score of -0.6, and a Z-score of 0.3. The bone mineral density of the left femoral neck is 0.857 with a T-score of -1.3, and a Z-score of 0.0. FRACTURE RISK: The FRAX index suggests a risk of major osteoporotic fracture of 13.9%, and of hip fracture 1.3%. MM/XR DEXA axial skeleton IMPRESSION: Based on bone mineral density, and according to World Health Organization (WHO) criteria, the diagnosis is consistent with osteopenia. All bone density values are in grams per centimeter squared. At this facility, the least significant change in BMD with 95% confidence is 0.022 at the lumbar spine, 0.027 at the hip, and 0.023 at the distal 1/3 radius. Electronically signed by: Zechariah Tao MD 06/04/2024 01:48 PM [facility] RP
== END 2024-06-01 07:19 | disposition home or self-care (01) ==
LOC: HO.MAMMO 07:18
PROVIDERS: PCP Internal Medicine; Visit Provider Obstetrics & Gynecology
DX: Z12.31 Encounter for screening mammogram for malignant neoplasm of breast (principal); Z13.820 Encounter for screening for osteoporosis; Z78.0 Asymptomatic menopausal state
CPT/HCPCS: 77063; 77067; 77080

== ENCOUNTER → 2024-06-01 08:15 | Outpatient (BNV) | payer OTHER, SELFPAY | PROVIDERS: PCP Internal Medicine; Visit Provider Radiology Diagnostic Radiology | DX: Z12.31 Encounter for screening mammogram for malignant neoplasm of breast (principal) | CPT/HCPCS: 77063; 77067 ==

== ENCOUNTER 2024-06-19 10:33 | Outpatient (AMB) | payer OTHER, SELFPAY ==
--- NOTE | 2024-06-19 11:11 | MHC.OFFVIS ---
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 The bone mineral density of the left total hip is 0.926 with a T-score of -0.6, and a Z-score of 0.3. The bone mineral density of the left femoral neck is 0.857 with a T-score of -1.3, and a Z-score of 0.0. FRACTURE RISK: The FRAX index suggests a risk of major osteoporotic fracture of 13.9%, and of hip fracture 1.3%. 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 FRAX risk and T score showed no evidence of osteoporosis. Discussed with the patient all the options for osteoporosis prevention including lifestyle modifications including Ca+D supplements 1200 mg po qd/800 MIU, Weight bearing exercises and proteine supplements. The patient verbalized understanding and agreed plan will repeat DEXA in 2 years. Coding Level of Care Code Est Pt Level 3 (97747) Diagnoses Osteopenia M85.80
--- OUTSIDE RECORDS SUMMARY | 2024-06-19 11:38 | XMS_ITS | Clinical Summary ---
Author Organization [facility] Address [address] [place] [address] Care Team Providers Care Hand Candy Cutter Name Role Phone Unavailable Primary Care Provider Unavailabl e Source Comments PLEASE NOTE, if this patient is a minor, it may be UNLAWFUL to discuss sensitive information that is contained in these records (such as FAMILY PLANNING, MENTAL HEALTH or SUBSTANCE ABUSE) with the minor patient's parent or other person without the patient's specific authorization.[facility] Immunizations Name Administration Dates Next Due Moderna COVID-19 Vaccine, re d cap blue label, 12+ Primary Series 09/17/2020,08/20/2020 Social History Tobacco Use Types Packs/Day Years Used Date Smoking Tobacco: Never Assessed Social Connections Answer Date Recorded Social Connections and Isolation 0 08/20/2020 Financial Resource Strain Answer Date R ecorded Financial Resource Strain 0 2020 Stress Answer Date Recorded Stress 0 08/20/2020 Physical Activity Answer Date Recorded Physical Activity 0 08/20/2020 Food Insecurity Answer Date Recorded Food 0 08/20/2020 Transportation Needs Answer Date Record ed Transportation 0 08/20/2020 Housing Stability Answer Date Recorded Housing 0 08/20/2020 Safety and Environment Answer Date Jorje rded Safety 0 08/20/2020 Utilities Answer Date Recorded Utilities 0 08/20/2020 Employment Answer Date Recorded Employment 0 08/20/2020 Comments Unknown Sex and Gender Information Value Date Recorded Sex Assigned at Not on file Legal Sex Female 10:19 AM PDT Gender Identity Not on file Sexual Orientation Not on file Plan of Treatment Health Maintenance Due Date Last Done Comments Diabetes Screening 1960 HPV Screening 1960 Hepatitis C Screening 1960 Lipid Screening 1960 Pap + HPV 1960 Tobacco Screening 1960 HIV Screening 12/17/1974 Annual Preventive Care Visit 12/17/1977 Hypertension Screening (#1) 12/17/1977 Cervical Cancer Screening 12/17/1980 Pap Smear 12/17/1980 Breast Cancer Screening (Mammogram) 1999 CT Colonography 12/17/2004 Colonoscopy 12/17/2004 Colorectal Cancer Screening 12/17/2004 FIT/gFOBT 12/17/2004 Fecal DNA 12/17/2004 Flexible Sigmoidoscopy 12/17/2004 Imm-Zoster, Recombinant (1 of 2) 12/17/2009 Alcohol and Drug Screen 05/23/2023 Depression Annual Screen 05/23/2023 [id number] ( season) 2024 021, 08/20/2020 Imm-Influenza (#1) 2024 03/19/2020 Imm-DTaP/Tdap/Td (2 - Td or Tdap) 05/06/2029 019 Cervical Ablation/Cold-Knife Conization Discontinued Cervical Cryotherapy Discontinued Colposcopy Discontinued Endometrial Biopsy Discontinued Excision/Leep Discontinued HPV Genotyping Discontinued Vaginal Pap Discontinued Vulvoscopy Discontinued Insurance [employer] Member Subscriber Plan / Payer (Ef fective 2016-Present) Name:Selena Womack Relation to Subscriber:Self Name:Selena Womack Payer ID:[id number] Type:Indemnity Address: [facility] [address] [place] [address]
== END 2024-06-19 11:16 | disposition home or self-care (01) ==
LOC: HO.HWS 10:33
PROVIDERS: PCP Internal Medicine; Visit Provider Obstetrics & Gynecology
DX: M85.80 Other specified disorders of bone density and structure, unspecified site (principal)
CPT/HCPCS: 99213

== ENCOUNTER → 2024-06-19 10:33 | Outpatient (BNVA) | payer OTHER, SELFPAY | PROVIDERS: PCP Internal Medicine; Visit Provider Obstetrics & Gynecology | DX: M85.80 Other specified disorders of bone density and structure, unspecified site (principal) | CPT/HCPCS: 99212 ==

== ENCOUNTER 2025-03-29 13:18 | Emergency (ER) | payer MEDICARE, BC, SELFPAY ==
--- NOTE | ~2025-03-29 | CT_ITS ---
CLINICAL HISTORY: ? pe CT angiography chest with contrast. 3D Postprocessing. Comparison: None provided Findings: NECK BASE: Limited views of the thyroid are unremarkable. LUNGS/PLEURA: Mild ground-glass mosaic attenuation bilaterally. PULM VASCULAR: No pulmonary embolism. MEDIASTINUM: No masses or lymphadenopathy. CARDIAC: No pericardial effusion. No cardiomegaly. AORTA: No aneurysm. CHEST WALL: No masses or axillary lymphadenopathy. LIMITED ABDOMEN: Cholelithiasis. BONES: No acute fracture. IMPRESSION: 1. No pulmonary embolus. 2. Mild ground-glass mosaic attenuation bilaterally, may represent air trapping or edema. This document has been electronically signed by: Alisson Chowdhury MD on 03/29/2025 18:36:13
[2025-03-29 13:30] VITALS: BP 118/72; BP 138/70; PULSE 79; PULSE 80; RESP 16; TEMP 36.6; O2SAT 97; O2SAT 98; BMI 28.5
--- NOTE | 2025-03-29 15:35 | ECG_ITS ---
Test Reason : NEAR SYNCOPE Blood Pressure : */* mmHG Vent. Rate : 82 BPM Atrial Rate : 82 BPM P-R Int : 154 ms QRS Dur : 90 ms QT Int : 398 ms P-R-T Axes : 37 -28 19 degrees QTcB Int : 464 ms Normal sinus rhythm Minimal voltage criteria for LVH, may be normal variant ( R in aVL ) Nonspecific T wave abnormality Abnormal ECG No previous ECGs available Referred By: Shanae Robbins Electronically Signed By: Renard Macdonald
--- OUTSIDE RECORDS SUMMARY | 2025-03-29 15:47 | XMS_ITS | Clinical Summary ---
Author Organization [facility] Address [address] [place], [place] [id number] Phone Care Team Providers Care Quality Director Name Role Phone Luis M Blackwood MD Primary Care Provider Allergies No known active allergies Medications omeprazole (PRILOSEC) 20 MG capsule 09/23/2022 Active traZODone (DESYREL) 50 MG tablet Take 50 mg by mouth nightly at bedtime. 09/09/2022 Active Family History Medical History Relation Comments Cancer Father Diabetes Mother Relation Status Comments Father Mother Social History Tobacco Use Types Packs/Day Years Used Date Smoking Tobacco: Former Cigarettes Q uit: 1985 Tobacco Cessation:Counseling Given: Not Answered Alcohol Use Standard Drinks/Week Comments Yes 0 (1 standard drink = 0.6 oz pur e alcohol) Education Answer Date Recorded Are you interested in more education? Not on antonina e 09/18/2022 Are you concerned about learning? Not on file 09/18/2022 No 09/18/2022 No 09/18/2022 Digital Access Answer Date Recorded No 10/17/2022 No 10/17/2022 No 10/17/2022 Reliable internet access at home? Not on file 10/17/2022 Device with a working camera? Not on file Comments Unknown Sex and Gender Information Value Date Recorded Sex Assigned at Not on file Legal Sex Female 10:52 AM EDT Gender Identity Not on file Sexual Orientation Not on file Last Filed Vital Signs Vital Sign Reading Time Taken Comments Blood Pressure 122/71 09/29/2022 3:41 PM EDT Pulse 65 09/29/2022 3:41 PM EDT Temperature - - Respiratory Rate - - Oxygen Saturation - - Inhaled Oxygen Concentration - - Weight - - Height 163.2 cm (5' 4.25 ) 09/29/2022 3:41 PM ED T Body Mass Index - - Plan of Treatment Health Maintenance Due Date Last Done Comments Adult Td,Tdap Booster 1960 LIPID PANEL 1959 DEPRESSION SCREENING 1971 SMOKING Hx and SMOKELESS TOBACCO SCREENING 12/17/1972 HEPATITIS C SCREENING 12/17/1977 HIV ONE-TIME SCREENING (18-6 5 YEARS) 12/17/1977 MAMMOGRAM 1999 COLOGUARD 12/17/2004 COLONOSCOPY 12/17/2004 COLORECTAL CANCER SCREENING 12/17/2004 FIT TEST 12/17/2004 FOBT 12/17/2004 SIGMOIDOSCOPY 12/17/2004 VIRTUAL COLONOSCOPY 12/17/2004 PNEUMOCOCCAL VACCINES (50+ years) (1 of 1 - PCV) 12/17/2009 ZOSTER VACCINES (1 of 2) 12/17/2009 OSTEOPOROSIS SCREENING INITI AL (ONE-TIME) 12/17/2024 INFLUENZA VACCINE (#1) 2024 COVID-19 VACCINE (3 - 2024-2 6 season) 2025 09/17/2020, 08/20/2020 RSV VACCINE (1 - 1-dose 75+ series) 12/17/2034 HEPATITIS A VACCINES Aged Out No long er eligible based on patient's age to complete this topic HIB VACCINES Aged Out No longer eligi ble based on patient's age to complete this topic MENINGOCOCCAL VACCINES (ACWY) Aged Out No longer eligible based on patient's age to complete this topic MENINGOCOCCAL VACCINES (B) Aged Out N o longer eligible based on patient's age to complete this topic Medical Devices Not on file Insurance [facility] PCP JACKY MOODY CONNECTORCARE WELLSENSE NON NSPG PCP SILVER CLARITY CONNECTORCARE WELLSENSE NON NSPG PCP SILVER CLARITY CONNECTORCARE WELLSENSE NON NSPG PCP SILVER CLARITY CONNECTORCARE ROCKY COMFORTENSE NON NSPG PCP SILVER CLARITY CONNECTORCARE [facility] NON NSPG PCP SILVER CLARITY CONNECTORCARE Care Teams Quality Director Relationship Specialty Start Date End Date Luis M Blackwood MD [address] [place] [address] [place] [address] PCP - General 08/25/22 Additional Source Comments The information contained in this document represents components of the legal health record. It is not the complete legal health record.[facility]
--- NOTE | 2025-03-29 16:23 | ED_ITS ---
HPI - Syncope General Chief Complaint: Syncope Stated Complaint: syncopal episode Time Seen by Provider: 03/29/25 15:45 History of Present Illness HPI narrative: 64-year-old female today had a syncopal episode. Patient had 1 drink. Smoke 3 puffs of marijuana. Was noted to have an initial low blood pressure of 77/34 denies any blood in the stool. Patient is status post fall had a cast applied a couple of days ago to the left upper extremity. Patient from home. There is no swelling in the lower extremity. There is no fever no chills. There is no chest pain. No diaphoresis. Patient from home. No chest pain. No history of blood clots in the past. No diaphoresis. No sudden deaths in the family. Patient felt dizzy lightheaded then feel like her vision tunneled then had the syncopal episode. Currently not on blood thinners. There was no head trauma. Related Data Home Medications ?Medication ?Instructions ?Recorded ?Confirmed cetirizine 10 mg tablet (Zyrtec) 10 mg PO DAILY PRN Se asonal 11/12/20 08/02/23 allergies omeprazole 20 mg capsule,delayed 20 mg PO DAILY 08/02/23 release trazodone 50 mg tablet 50 mg PO QPM 11/16/21 Previous Rx's ?Medication ?Instructions ?Recorded pantoprazole 40 mg tablet,delayed 40 mg PO DAILY 30 da ys #30 tabs 08/19/23 release Allergies Allergy/AdvReac Type Severity Reaction Status Date / Time bee pollen (BEE STINGS) Allergy Severe ANAPHYLAXIS Verified 03/29/25 13:35 ENVIROMENTAL Allergy Intermediate HAYFEVER Uncoded 03/08/24 09:37 Review of Systems 2 Review of Systems: Positive head injury [facility] Past Medical History Attestation statement: The following information was validated with the patient. Medical History Hx LEEP (loop electrosurgical excision procedure), cervix, Skin cancer Surgical History History of esophagogastroduodenoscopy (EGD) Hx of colonoscopy History of dental surgery Family History Family History Maternal Grandmother Breast CA Social History Social History Household Members Other:: partner Housing: House Alcohol intake: current Alcohol intake frequency: a few times a month Patient Tobacco Use Status: Former Tobacco user Years Smoked: 10 Smoked in Last 30 Days: No Use of substances other than those prescribed or required for medical reasons: Yes Substance Use Type: Marijuana Advance Directives: No Advance Directives Information Provided: Yes Current occupational status: employed 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 Oriented X3. No acute distress. Eyes: Pupils equal, round and reactive to light. ENT: Pharynx normal. Neck: Normal inspection. Neck supple. No lymph nodes noted. No crepitus CVS: Normal heart rate and rhythm. Pulses normal. Normal S1 and S2 Respiratory: No respiratory distress. Breath sounds normal. No Wheezing. No rales Abdomen: Soft and nontender. No rigidity. No distention. good BS x4 Skin: Skin warm and dry. Normal skin color. Normal skin turgor. Extremities: No lower extremity edema. Examination of the left upper extremity showed good distal pulses. Sensation intact. There is a splint in place. I did open up the splint slightly. Patient feels relief. No acute pain. Color was good. Neuro: Oriented X 3. No motor deficit. No sensory deficit. Moving all extermities. No slurred speech Vital Signs: Vital Signs: Last Vital Signs Temp 97.9 F 03/29/25 13:30 Pulse 97 03/29/25 17:26 Resp 16 03/29/25 17:25 BP 135/77 03/29/25 17:26 Pulse Ox 96 03/29/25 17:25 O2 Del Method Room Air 03/29/25 17:25 BMI result Body Mass Index 28.5 Medications Administered Discontinued Medications Generic Name Dose Route Start Last Admin Trade Name Freq PRN Reason Stop Dose Admin Iohexol 100 ml 03/29/25 17:53 03/29/25 17:53 Iohexol 350 Mg/Ml 100 Ml Infus..Btl IV 03/29/25 17:54 65 ml ONCE ONE Administration Medical Decision Making Medical Decision Making MDM Narrative: My interpretation of patient's EKG showed a sinus rhythm heart rate is 80 MS QRS QTC normal no acute ST segment elevation. Patient's cardiac enzymes negative. No evidence for ACS. Patient's EKG appear normal. No gross arrhythmia alcohol is negative patient's hemoglobin is 12.7 no gross signs of anemia. Symptoms consistent with vasovagal episode. A CTA of the chest was negative for PE. Blood pressure is normal here in the ED. Will discharge patient home. For patient's splint I opened that is slightly more. The symptoms completely gone away. There is no swelling. There is good pink skin noted. There is good movement. Differential Diagnosis Differential Diagnoses: The differential diagnosis associated with the presentation includes Vasovagal syncope, arrhythmia Admission/Observation Consideration of admission/observation: Escalation of care including admission/observation considered Lab Data MDM Lab Attestation statement: I reviewed the patient's lab results. 03/29/25 16:24 03/29/25 16:24 Labs: Lab Results 03/29/25 Range/Units 16:24 WBC 9.3 (4.8-10.8) X10*3/uL RBC 4.29 (4.20-5.50) X10*6/uL Hgb 12.7 (12.0-16.0) g/dl Hct 36.7 L (37.0-47.0) % MCV 85.5 (80.0-98.0) fL MCH 29.6 (27.0-33.0) pg MCHC 34.6 (31.0-35.0) g/dl RDW 13.1 (11.0-16.0) % Plt Count 198 (160-400) X10*3/uL MPV 10.9 (9.4-12.3) fL Immature Gran % (Auto) 0.3 (0.0-0.4) % Neut % (Auto) 82.4 H (45-73) % Lymph % (Auto) 12.0 L (20-40) % [place] % (Auto) 4.8 (2-11) % Eos % (Auto) 0.2 (0-4) % Baso % (Auto) 0.3 (0-2) % Lymph # (Auto) 1.1 L (1.2-4.9) X10*3/uL [place] # (Auto) 0.5 (0.1-1.2) X10*3/uL Eos # (Auto) 0.0 (0.0-0.4) X10*3/uL Baso # (Auto) 0.0 (0.0-0.2) X10*3/uL Abs Immat Gran (auto) 0.03 (0.00-0.03) X10*3/uL Absolute Neuts (auto) 7.6 (2.0-8.3) x10*3/uL Absolute Nucleated RBC 0.000 (0.0-0.012) X10*3/uL Nucleated RBC % (auto) 0.0 (0.0-0.2) /100WBC PT 12.4 (11.2-13.5) SEC INR 1.0 (0.9-1.1) Sodium 136 (135-145) mmol/L Potassium 3.9 (3.3-5.1) mmol/L Chloride 106 (96-108) mmol/L Carbon Dioxide 22 (22-29) mmol/L Anion Gap 12 (12-20) BUN 18 H (9-16) mg/dL Creatinine 0.66 (0.5-1.4) mg/dL Estim Creat Clear Calc 87.6 Estimated GFR > 60 Random Glucose 109 (60-115) mg/dL Calcium 8.7 (8.4-10.2) mg/dL Magnesium 2.2 (1.6-2.6) mg/dL Total Bilirubin 0.3 (0.0-1.0) mg/dL Direct Bilirubin 0.1 (0.0-0.5) mg/dL AST 21 (5-31) U/L ALT 15 (0-31) U/L Alkaline Phosphatase 52 (39-117) U/L Troponin I High Sens < 2.7 (<3.5-17.0) ng/L Total Protein 6.6 (6.5-8.0) g/dL Albumin 4.3 (3.5-5.0) g/dL Ethyl Alcohol < 10 mg/dL Independent Interpretation I performed an independent interpretation of an: EKG (My interpretation patient's EKG as above) and CT Scan (My interpretation patient's CTA is grossly negative) Radiology Impression Discussion of test interpretation with radiology: I have reviewed the radiologist's reading. Chronic Conditions Patient's case complicated by a fracture wrist on the left side Social Determinants Patient?s care significantly limited by Social Determinants of Health including: Problems related to primary support group Discharge Plan Discharge Clinical Impression: Vasovagal syncope Patient Disposition: Home, Self-Care Instructions: Syncope (ED) Prescriptions: No Action pantoprazole 40 mg tablet,delayed release (DR/EC) 40 mg PO DAILY 30 Days Qty: 30 11RF cetirizine [Zyrtec] 10 mg tablet 10 mg PO DAILY PRN (Reason: Seasonal allergies) trazodone 50 mg tablet 50 mg PO QPM omeprazole 20 mg capsule,delayed release(DR/EC) 20 mg PO DAILY Referrals: Physician,Min J [Primary Care Provider, Medical] - 04/01/25 Print Language: Greenlandic
[2025-03-29 16:31] LABS: MANUAL DIFF FLAG NO
[2025-03-29 16:34] LABS: Hematocrit 36.7 % (37.0-47.0); Hemoglobin 12.7 g/dl (12.0-16.0); Imm Gran Abs Auto 0.03 X10*3/uL (0.00-0.03); Imm Gran Pct Auto 0.3 % (0.0-0.4); Lymphocytes Absolute Auto 1.1 X10*3/uL (1.2-4.9); Mean Corpuscular HGB Conc 34.6 g/dl (31.0-35.0); Mean Corpuscular Hemoglobin 29.6 pg (27.0-33.0); Mean Corpuscular Volume 85.5 fL (80.0-98.0); NRBC Abs Auto 0.000 X10*3/uL (0.0-0.012); NRBC Pct Auto 0.0 /100WBC (0.0-0.2); Platelet Count 198 X10*3/uL (160-400); Red Blood Count 4.29 X10*6/uL (4.20-5.50); White Blood Count 9.3 X10*3/uL (4.8-10.8)
[2025-03-29 16:47] LABS: Alanine Aminotransferase 15 U/L (0-31); Albumin Level 4.3 g/dL (3.5-5.0); Alkaline Phosphatase 52 U/L (39-117); Anion Gap 12 (12-20); Aspartate Amino Transferase 21 U/L (5-31); Blood Urea Nitrogen 18 mg/dL (9-16); Calcium 8.7 mg/dL (8.4-10.2); Carbon Dioxide 22 mmol/L (22-29); Chloride 106 mmol/L (96-108); Creatinine Clr Calc Pharmacy 87.6; Estimated Glomerular Filt Rate > 60; Magnesium 2.2 mg/dL (1.6-2.6); Potassium 3.9 mmol/L (3.3-5.1); Sodium 136 mmol/L (135-145); Total Protein 6.6 g/dL (6.5-8.0)
[2025-03-29 16:48] LABS: INTERNATIONAL NORM RATIO 1.0 (0.9-1.1); Prothrombin Time 12.4 SEC (11.2-13.5)
[2025-03-29 16:56] LABS: Troponin-I High Sensitivity < 2.7 ng/L (<3.5-17.0)
[2025-03-29 17:25] VITALS: BP 125/62; BP 132/71; PULSE 75; PULSE 80; RESP 16; O2SAT 96
[2025-03-29 17:26] VITALS: BP 135/77; BP 150/79; PULSE 84; PULSE 97
[2025-03-29] MEDS: iohexoL 350 MG/ML 100 ML INFUS..BTL IV (17:53)
[2025-03-29 18:57] VITALS: BP 135/77; PULSE 97; RESP 18; TEMP 36.6
== END 2025-03-29 18:58 | disposition home or self-care (01) ==
PROVIDERS: Physician Assistant Medical; Emergency Provider Emergency Medicine Emergency Medical Services
DX: R55 Syncope and collapse (principal); F12.90 Cannabis use, unspecified, uncomplicated; R94.31 Abnormal electrocardiogram [ECG] [EKG]; Z79.899 Other long term (current) drug therapy; Z87.891 Personal history of nicotine dependence; Z51.81 Encounter for therapeutic drug level monitoring
CPT/HCPCS: 36415; 71275; 80048; 80076; 80307; 83735; 84484; 85025; 85610; 93005; 99284; Q9967

== ENCOUNTER → 2025-03-29 15:35 | Outpatient (BNV) | payer BC, MEDICARE, SELFPAY | PROVIDERS: Emergency Provider Emergency Medicine Emergency Medical Services; Visit Provider Internal Medicine Cardiovascular Disease | DX: R94.31 Abnormal electrocardiogram [ECG] [EKG] (principal); R55 Syncope and collapse | CPT/HCPCS: 93010 ==

== ENCOUNTER → 2025-03-29 16:12 | Outpatient (BNV) | payer BC, MEDICARE, SELFPAY | PROVIDERS: Emergency Provider Emergency Medicine Emergency Medical Services; Visit Provider Student in an Organized Health Care Education/Training Program | DX: R91.8 Other nonspecific abnormal finding of lung field (principal) | CPT/HCPCS: 71275 ==

== ENCOUNTER 2025-04-08 11:00 | Outpatient (AMB) | payer BC, MEDICARE, SELFPAY ==
--- NOTE | 2025-04-08 11:03 | A.OFFPC_ITS ---
Vital Signs 04/08/25 11:06 Height 5 ft 4.96 in Weight 155 lb 2 oz BMI 25.8 BP 128/68 Blood Pressure Location Rt brachial Position Sitting Pulse 98 Pulse Source Pulse Oximeter Temp 96.9 F Temp Source Temporal Artery Scan Pulse Oximetry (%) 99 Oxygen Delivery Method Room Air Intake Visit Reasons: Physical/meds/s/p left wrist break Accompanied by: Self / Same As Patient Allergies bee pollen (BEE STINGS) Allergy (Severe, Verified 04/08/25 11:03) ANAPHYLAXIS ENVIROMENTAL Allergy (Intermediate, Uncoded 03/08/24 09:37) HAYFEVER Medication List - Last Reconciled 04/08/25 by REVA Swartz cetirizine (Zyrtec) 10 mg PO DAILY PRN pantoprazole 40 mg PO DAILY trazodone 50 mg PO QPM PRN Tobacco use date assessed: 04/08/25 Fall risk assessment: 1 Fall in past year Last assessed Fall Risk: 04/08/25 Dental Screening Dental Screen Date: 04/08/25 Did you have a dental visit in the last 12 months?: Yes Was dental information given to patient?: Patient has dentist HPI HPI Comments History of Present Illness Details History of Present Illness The patient is a 64-year-old female with GERD, Anxiety/Insomnia and AR presenting for a follow-up visit, medication refills, and to discuss recent health events, including a syncopal episode and a wrist fracture, in the context of ongoing grief. The patient reports a recent syncopal episode that occurred after consuming one beer and smoking marijuana in a hot environment. She was evaluated in an emergency room on 03/29 where she was diagnosed with dehydration, received IV fluids, and a CT scan was negative for blood clots. Separately, she sustained a distal radius fracture after falling while hiking and is currently in an immobilizer. She was seen by [facility] and will be getting a cast tomorrow which she is expected to have until New Year's. The patient's of 24 years in October from bladder cancer. She is experiencing significant grief, with feelings of loneliness and vulnerability, which have been exacerbated by her recent wrist fracture. The patient has been utilizing grief support groups. Her current medications include pantoprazole for acid reflux, cetirizine for allergies, and trazodone for sleep and anxiety. She has a history of osteopenia on Dexa in May, a colonoscopy a few years ago that found one polyp, and a basal cell carcinoma that is scheduled for Mohs surgery in May. She had a mammogram in May. Medical History: - Syncope, secondary to dehydration - Osteopenia - History of colon polyp - Basal cell carcinoma - Gastroesophageal reflux disease - Allergic rhinitis - Insomnia and anxiety - Left distal radius fracture - Grief reaction Surgical History: - Mohs surgery for basal cell carcinoma, scheduled for May 25. Medications: - Pantoprazole for acid reflux - Cetirizine for allergies - Trazodone for sleep and anxiety Health Maintenance Orders were placed for a lipid panel, thyroid studies, and vitamin D level, which can be done non-fasting. Three-month refills for pantoprazole and trazodone were sent to the patient's pharmacy. The patient was advised on the importance of sunscreen use given her fair skin and family history of skin cancer. A follow-up appointment is scheduled for six months, unless new concerns arise. Results - Labs: Recent emergency room labs inclu ding a complete blood count, liver panel, and kidney function panel were all normal. - Imaging: A recent CT scan was negative for blood clots. - Procedures: A previous bone density sc an showed osteopenia. - Pathology: A recent skin biopsy was po sitive for basal cell carcinoma. Patient was informed and verbally consented to the use of an ambient scribe for clinic note documentation during this visit. [facility] Medical History (Updated 04/08/25 @ 13:18 by REVA Swartz) Allergic rhinitis Grieving Health care maintenance Hx LEEP (loop electrosurgical excision procedure), cervix, Insomnia Skin cancer Surgical History History of dental surgery History of esophagogastroduodenoscopy (EGD) Hx of colonoscopy (~08/02/23) Family History Maternal Grandmother Breast CA Social History Household Members Other:: partner Housing: House Alcohol intake: current Alcohol intake frequency: a few times a month Patient Tobacco Use Status: Former Tobacco user Years Smoked: 10 Substance Use Type: Marijuana service: No Current occupational status: retired 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 1. Little interest or pleasure in doing things: not at all 2. Feeling down, depressed, or hopeless: several days 3. Trouble falling or staying asleep, or sleeping too much: several days 4. Feeling tired or having little energy: not at all 5. Poor appetite or overeating: not at all 6. Feeling bad about yourself - or that you are a failure or have let yourself or your family down: several days 7. Trouble concentrating on things, such as reading the newspaper or watching television: not at all 8. Moving or speaking so slowly that other people could have noticed. Or the opposite - being so fidgety or restless that you have been moving around a lot more than usual: not at all 9. Thoughts that you would be better off or of hurting yourself in some way: not at all Total score: 3 Depression Screening Interpretation: Negative (Patient is engaged with Grief counseling group through husbands oncologist. ) Depression Screening Done: Yes Source: Developed by Drs. Zechariah Schulz, Elisabeth Waters, Ernie Myers and colleagues, with an educational gissel from [employer]. Thrive Questionnaire Date Thrive assessed: 04/08/25 I am a: Patient What is your living situation today?: I have a steady place to live Within the past 12 months, did the food you bought not last and you didn't have the money to get more?: Never true Within the past 12 months, did you worry whether your food would run out before you got money to buy more?: Never true Do you have trouble paying for medicines?: No Do you have trouble getting transportation to medical appointments?: No Do you have trouble paying your heating and electricity bill?: No Do you have trouble taking care of your child, family member or friend?: No Do you have trouble with day-to-day activities such as bathing, preparing meals, shopping, managing finances, etc.?: No Are you currently unemployed and looking for a job?: No Are you interested in more education?: No Please select the resources that you would like help with: None THRIVE Score: 0 AUDIT C Alcohol Use Questionnaire (AUDIT-C) 1. How often do you have a drink containing alcohol?: Monthly or less 2. How many drinks containing alcohol do you have on a typical day when you are drinking?: 1 or 2 3. How often do you have six or more drinks on one occasion?: Never Total Score: 1 SHANTE-7 AMB Questionnaire SHANTE-7 Date SHANTE - 7 assessed: 04/08/25 Feeling nervous, anxious, or on edge: 1 = Several days Not being able to stop or control worryin = Several days Worrying too much about different things: 1 = Several days Trouble relaxin = Several days Being so restless that it is hard to sit still: 0 = Not at all Becoming easily annoyed or irritable: 0 = Not at all Feeling afraid as if something awful might happen: 1 = Several days Total SHANTE-7 score (0-4 normal; 5-9 mild; 10-14 moderate; 15-21 severe): 5 Source: Developed by Drs. Zechariah Schulz, Elisabeth Waters, Ernie Myers and colleagues, with an educational gissel from [employer]. SHANTE-7 Assessment Billing SHANTE-7 Assessment Tool: SHANTE-7 Assessment 28059 Review of Systems Narrative Review of Systems - CONSTITUTIONAL: Reports feeling vulnerable but denies fevers. - EYES: Denies vision problems. - HENT: Denies hearing problems. - CARDIOVASCULAR: Denies chest pain. - RESPIRATORY: Denies shortness of breath or cough. - GASTROINTESTINAL: Reports good control of heartburn. Denies constipation or diarrhea. - MUSCULOSKELETAL: Reports left wrist pain secondary to fracture. Denies other back or joint pains. - NEUROLOGICAL: Reports a recent syncopal episode. - PSYCHIATRIC: Reports feelings of sadness, loneliness, and feeling sorry for herself consistent with grief. - DERMATOLOGIC: Reports a skin lesion scheduled for removal. Physical exam (Primary Care) Vital Signs: Last Vital Signs Temp 96.9 F 04/08/25 11:06 Pulse 98 04/08/25 11:06 BP 128/68 04/08/25 11:06 Pulse Ox 99 04/08/25 11:06 Oxygen Delivery Method Room Air 04/08/25 11:06 BMI result Body Mass Index 25.8 GENERAL Well developed, Well nourished, in no apparent distress HEENT Head-Normocephalic Eyes- PERRLA, EOMI, Conjuctiva clear, lids WNL Ears- Canals clear, TMs WNL Mouth/Throat-No lesions, no erythema, no exudate Neck- Supple, No lymphadenopathy, thyroid WNL RESPIRATORY Normal I:E, Clear to auscultation CARDIOVASCULAR Regular, rate and rhythm, No murmurs or rubs GASTROINTESTINAL Soft, nontender, normal bowel sounds, no masses MUSCULOSKELETAL Back- nontender Left wrist is in an immobilizer. NEUROLOGICAL Gait normal PSYCHIATRIC Oriented to person, place and time Mood and affect grieving Appearance WNL Speech WNL Thought processes WNL Tobacco/Smoking Status: Tobacco use Status Tobacco use date assessed 04/08/25 04/08/25 11:05 Patient Tobacco Use Status Former Tobacco user 04/08/25 11:05 PHQ-9: PHQ-9 Score PHQ-9: Total score 3 04/08/25 11:31 Depression Screening Interpretation: Negative (Patient is engaged with Grief counseling group through husbands oncologist. ) Thrive Assessment: Date of Thrive Assessment Date Thrive assessed 04/08/25 04/08/25 11:13 Coding Level of Care Code New Pt New Pt Level 4 (08247) Patient Type New Diagnoses Gastroesophageal reflux disease without esophagitis K21.9 Esophagitis presence: without esophagitis Allergic rhinitis J30.9 Psychophysiological insomnia F51.04 Insomnia type: psychophysiologic Grieving F43.21 Additional Codes SHANTE-7 Assessment Billing - SHANTE-7 Assessment Tool: SHANTE-7 Assessment 44644 ([id number]) Time Spent (min) 35 Comment Time spent on chart review, medication reconciliation, H&P, Patient education, orders Assessment & Plan Assessment & Plan (1) Acid reflux: Code(s): K21.9 - Gastro-esophageal reflux disease without esophagitis Category: Medical Qualifiers: Esophagitis presence: without esophagitis Qualified Code(s): K21.9 - Gastro-esophageal reflux disease without esophagitis Plan: Patient feels symptoms are controlled on Pantoprazole. Patient will continue current medications. Will monitor. Patient will follow up in 6 months. (2) Allergic rhinitis: Code(s): J30.9 - Allergic rhinitis, unspecified Category: Medical Plan: Doing well on Cetirizine. Patient will continue current medications. Will monitor. Patient will follow up in 6 months. (3) Insomnia: Code(s): G47.00 - Insomnia, unspecified Category: Medical Qualifiers: Insomnia type: psychophysiologic Qualified Code(s): F51.04 - Psychophysiologic insomnia Plan: Doing OK on Trazodone. Patient will continue current medications. Will monitor. Patient will follow up in 6 months. (4) Grieving: Code(s): F43.21 - Adjustment disorder with depressed mood Category: Medical Plan: Patient is working with grief group. She does not want additional medication at this time. Patient to follow up as needed if symptoms persist or worsen. Plan Plan Patient was informed and verbally consented to the use of an ambient scribe for clinic note documentation during this visit. 1. Grief Reaction The patient is experiencing a significant grief reaction following the of her , which has been exacerbated by her recent injury and feelings of vulnerability. It was discussed that while medication is an option for depression if she feels overwhelmed, it is reasonable to allow more time for the grieving process first. The patient was advised to return sooner than the scheduled 6-month follow-up if she feels she needs additional help. 2. Left Distal Radius Fracture The patient is under the care of orthopedics for a left distal radius fracture and is scheduled to get her immobilizer changed to a cast tomorrow. She will continue to follow up with her vocational placement specialist. 3. Basal Cell Carcinoma The patient has a diagnosed basal cell carcinoma and is scheduled for Mohs surgery in May. She will proceed with the planned procedure and continue with regular dermatology appointments. 4. Syncope The patient had a single syncopal episode likely secondary to dehydration, with a reassuring negative workup in the emergency room, including a normal CT scan and labs. No further workup is indicated at this time. Discussion Notes I discussed the plan for routine lab work, which I advised the patient she could have done today on a non-fasting basis. I sent 3-month refills for her pantoprazole and trazodone. We had a conversation about her grief process, and I explained that while we can consider antidepressant medication if she feels overwhelmed, it is reasonable to give it more time without medication for now. I provided return precautions, encouraging her to come back sooner if she feels her mood is worsening. We scheduled a follow-up appointment in six months. Patient Instructions - I have placed orders for lab work to check your cholesterol, thyroid, and vitamin D levels. You can go to the lab in this building to have your blood drawn today; you do not need to fast for this test. - I have sent 3-month refills of your pantoprazole and trazodone to [facility] on [facility]. - Continue to follow the instructions from your orthopedic doctor for your broken wrist. - Please keep your dermatology appointment in May to have the skin cancer removed. - Make sure to use sunscreen regularly to protect your skin, especially given your family's history of skin cancer. - Please schedule a follow-up appointment to see me in six months. - It is normal to feel sad after losing a loved one. However, if you feel that you are getting overwhelmed or your mood is getting worse, please call the office and come back to see me sooner. We can discuss other options to help you. Orders: Orders TSH reflex Free T4 Today Z00.00 - Encounter for general adult medical examination without abnormal findings Lipid Panel Today Z00.00 - Encounter for general adult medical examination without abnormal findings, Z13.220 - Encounter for screening for lipoid disorders Vitamin D 25-OH Total Today Z00.00 - Encounter for general adult medical examination without abnormal findings Medications: Changed From trazodone 50 mg PO QPM To trazodone 50 mg PO QPM PRN 90 tabs 2RF for sleep From pantoprazole 40 mg PO DAILY 30 days 30 tabs 11RF To pantoprazole 40 mg PO DAILY 90 tabs 2RF for acid
[2025-04-08 11:06] VITALS: BP 128/68; PULSE 98; TEMP 36.1; O2SAT 99; BMI 25.8
== END 2025-04-08 11:36 | disposition home or self-care (01) ==
LOC: HO.HMCHD 11:00
PROVIDERS: Visit Provider Physician Assistant Medical
DX: K21.9 Gastro-esophageal reflux disease without esophagitis (principal); J30.9 Allergic rhinitis, unspecified; F51.04 Psychophysiologic insomnia; F43.21 Adjustment disorder with depressed mood

== ENCOUNTER 2025-04-08 11:55 | Outpatient (REF) | payer BC, MEDICARE, SELFPAY ==
[2025-04-08 14:14] LABS: Cholesterol 207 mg/dL (<200); HDL Cholesterol 68 mg/dL (>40); Triglycerides 190 mg/dL (<150)
== END 2025-04-08 11:56 | disposition home or self-care (01) ==
LOC: HO.10HDL 11:55
PROVIDERS: Visit Provider Physician Assistant Medical
DX: Z00.00 Encounter for general adult medical examination without abnormal findings (principal); Z13.220 Encounter for screening for lipoid disorders; Z13.6 Encounter for screening for cardiovascular disorders; Z13.29 Encounter for screening for other suspected endocrine disorder; Z13.21 Encounter for screening for nutritional disorder
CPT/HCPCS: 36415; 80061; 82306; 84443